=== PATIENT | female | born 1975 | race Caucasian/White ===

== ENCOUNTER 2020-06-12 03:22 | Emergency (ER) | payer OTHER ==
[~2020-06-12] VITALS: Ht 154.9 cm; Wt 66.2 kg
[2020-06-12 03:50] VITALS: BP 133/78
[2020-06-12] MEDS ORDERED: cephALEXin 500 MG CAP PO ONE (05:10)
[2020-06-12 05:33] VITALS: BP 133/78
--- NOTE | 2020-06-12 05:34 | NUR ---
44 Y/O F PRESENTS TO ED C/O PAINFUL URINATION X 3 DAYS ACCOMPANIED BY LOWER BACK PAIN. DENIES N/V/D/ DISCHARGE. RR EVEN AND UNLABORED. LUNG SOUNDS CLEAR UPON AUSCULTATION. MHX: DENIES ALLERGIES: ERYTHROMYCIN
--- NOTE | 2020-06-12 05:34 | NUR ---
Patient discharged with v/s stable. Written and verbal after care instructions given and explained. Patient alert, oriented and verbalized understanding of instructions. Ambulatory with steady gait. All questions addressed prior to discharge. ID band removed. Patient advised to follow up with PMD. Rx of PYRIDIUM AND CEPHALEXIN given. Patient educated on indication of medication including possible reaction and side effects. Opportunity to ask questions provided and answered.
== END 2020-06-12 05:34 | disposition home or self-care (01) ==
LOC: MED 03:22
DX: N12 Tubulo-interstitial nephritis, not specified as acute or chronic (principal); Z88.1 Allergy status to other antibiotic agents
CPT/HCPCS: 81002; 99283

== ENCOUNTER 2023-12-07 01:40 | Emergency (ER) | payer BC, OTHER ==
[~2023-12-07] VITALS: Ht 157.5 cm; Wt 73.5 kg
[2023-12-07 02:06] VITALS: BP 139/94; PULSE 78; RESP 18; TEMP 98.1; O2SAT 99
[2023-12-07 02:50] LABS: ALANINE AMINOTRANSFERASE 30 U/L (12-78); ALBUMIN 3.4 g/dL (3.4-5.0); ALKALINE PHOSPHATASE 89 U/L (50-136); ASPARTATE AMINOTRANSFERASE 24 U/L (15-37); TOTAL BILIRUBIN 0.2 mg/dL (0.0-1.0); TOTAL PROTEIN, SERUM 7.9 g/dL (6.4-8.2)
[2023-12-07 03:17] LABS: ANION GAP 12.7 (8-16); CALCIUM 9.2 mg/dL (8.5-10.1); CARBON DIOXIDE 29.5 mmol/L (21-32); CREATININE 0.7 mg/dL (0.6-1.3); POTASSIUM 4.2 mmol/L (3.5-5.1)
[2023-12-07 03:34] VITALS: BP 120/82; PULSE 65; RESP 18; TEMP 97.3; O2SAT 99
[2023-12-07 06:10] LABS: BASOPHILS # (AUTO) 0.1 K/uL (0.00-0.22); BASOPHILS % (AUTO) 0.8 % (0.0-2.0); EOSINOPHILS # (AUTO) 0.1 K/uL (0-0.4); EOSINOPHILS % (AUTO) 1.4 % (0.0-4.0); HEMATOCRIT 37.2 % (36-48); HEMOGLOBIN 12.9 g/dL (12.0-16.0); LYMPHOCYTES # (AUTO) 2.6 K/uL (2.5-16.5); LYMPHOCYTES % (AUTO) 37.9 % (20.5-51.1); MEAN CORPUSCULAR HEMOGLOBIN 30 pg (27-31); MEAN CORPUSCULAR HGB CONC 35 g/dL (33-37); MEAN CORPUSCULAR VOLUME 86.2 fL (80-94); MONOCYTES # (AUTO) 0.7 K/uL (0.8-1.0); MONOCYTES % (AUTO) 10.8 % (1.7-9.3); NEUTROPHILS # (AUTO) 3.4 K/uL (1.8-7.7); NEUTROPHILS % (AUTO) 49.1 % (42.2-75.2); PLATELET COUNT (AUTO) 401 K/uL (140-450); RED BLOOD CELL COUNT(AUTO) 4.32 MIL/uL (4.20-5.40); RED CELL DISTRIBUTION WIDTH 14.1 % (11.6-13.7); WHITE BLOOD COUNT (AUTO) 6.9 K/uL (4.8-10.8)
== END 2023-12-07 03:48 | disposition home or self-care (01) ==
LOC: MED 01:40
DX: S09.90XA Unspecified injury of head, initial encounter (principal); F07.81 Postconcussional syndrome; Z88.1 Allergy status to other antibiotic agents; Y08.89XA Assault by other specified means, initial encounter; Y93.89 Activity, other specified; Y92.89 Other specified places as the place of occurrence of the external cause; Y99.8 Other external cause status
CPT/HCPCS: 36415; 70450; 80048; 80076; 83880; 84484; 85025; 93005; 99284